=== PATIENT | female | born 1980 | race Caucasian/White ===

== ENCOUNTER 2016-10-14 22:58 | Emergency (ER) | payer MEDICAID ==
[2016-10-14 23:49] LABS: PLATELET COUNT 268 x10^3mcL (130-400)
[2016-10-14 23:58] LABS: CALCIUM 8.7 mg/dL (8.5-10.1); CARBON DIOXIDE 30.2 mmol/L (21-32); CHLORIDE SERUM 103 mmol/L (98-107); CREATININE SERUM 0.8 mg/dL (0.6-1.0); GFR1 > 60 mL/min; GLUCOSE SERUM 79 mg/dL (74-106); POTASSIUM SERUM 3.5 mmol/L (3.5-5.1); SODIUM SERUM 140 mmol/L (136-145)
[2016-10-15 00:03] LABS: ALKALINE PHOSPHATASE 96 U/L (46-116); ALT/SGPT 26 U/L (14-59); AST/SGOT 33 U/L (15-37); BILIRUBIN TOTAL 0.25 mg/dL (0.20-1.00); TOTAL PROTEIN, SERUM 6.6 g/dL (6.4-8.2)
[2016-10-15 00:04] LABS: ALBUMIN 3.3 g/dL (3.4-5.0)
[2016-10-15 00:29] VITALS: BP 151/110
== END 2016-10-15 00:29 | disposition home or self-care (01) ==
LOC: ED 22:58
PROVIDERS: Emergency Medicine
DX: R60.0 Localized edema (principal); R03.0 Elevated blood-pressure reading, without diagnosis of hypertension
CPT/HCPCS: 83880